=== PATIENT | female | born 2000 | race Caucasian/White ===

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

== ENCOUNTER 2022-05-05 14:22 | Emergency (ER) | payer OTHER ==
[~2022-05-05] VITALS: Ht 165.1 cm; Wt 89.8 kg
== END 2022-05-05 18:40 | disposition home or self-care (01) ==
LOC: ER 14:22 → EMR PED 14:49
DX: R00.2 Palpitations (principal); Z20.822 Contact with and (suspected) exposure to COVID-19

== ENCOUNTER 2022-08-02 02:25 | Emergency (ER) | payer OTHER ==
[~2022-08-02] VITALS: Ht 165.1 cm; Wt 92.5 kg
[2022-08-02] MEDS ORDERED: PROAIR HFA8.5 GM IH (06:12)
[2022-08-02] MEDS ORDERED: MEDROLPACK PO (06:12)
[2022-08-02] MEDS ORDERED: LEVALBUTER1.25 MG/0. IH (06:12)
[2022-08-02] MEDS ORDERED: MUCINEX DM ER1 EACH PO (06:13)
== END 2022-08-02 06:26 | disposition home or self-care (01) ==
LOC: EMR PED 02:25
DX: J45.901 Unspecified asthma with (acute) exacerbation (principal); J06.9 Acute upper respiratory infection, unspecified; A49.3 Mycoplasma infection, unspecified site; Z20.822 Contact with and (suspected) exposure to COVID-19

== ENCOUNTER 2024-07-23 14:42 | Emergency (ER) | payer OTHER ==
[~2024-07-23] VITALS: Ht 165.1 cm; Wt 97.5 kg
[~2024-07-23 14:42] MED LIST changes: +ACETAMINOPHEN650 M2; +LEVALBUTER1.25 MG/0. IH; +MEDROLPACK PO; +MUCINEX DM ER1 EACH PO; +PROAIR HFA8.5 GM IH
[2024-07-23] MEDS ORDERED: GUAIFENESIN/DEXTROMETHORPHAN 10ML BLIST.PACK PO STA (16:24)
[2024-07-23] MEDS ORDERED: CETIRIZINE HCL 5 MG/5 ML ML PO STA (16:25)
[2024-07-23] MEDS ORDERED: GUAIFENESIN/DEXTROMETHORPHAN 10ML BLIST.PACK PO ONE (16:32)
[2024-07-23] MEDS ORDERED: CETIRIZINE HCL 5MG/5ML BLIST.PACK PO ONE (16:32)
[2024-07-23 16:52] LABS: HEMOGLOBIN 12.5 g/dL (12.0-15.00); MEAN CELL VOLUME 84.4 fL (80.00-100.00); MEAN CORPUSCULAR HEMOGLOBIN 28.6 pg (27.00-32.0); MEAN CORPUSCULAR HGB CONC 33.9 g/dl (32.0-36.0); PLATELET COUNT 211 K/uL (150-450); RED BLOOD COUNT 4.38 M/uL (4.00-6.00); RED CELL DISTRIBUTION WIDTH 13.3 % (11.5-14.5)
[2024-07-23 17:15] LABS: CALCIUM 9.1 mg/dL (8.5-10.1); CREATININE SERUM 0.71 mg/dL (0.55-1.02); GFR 103.91; POTASSIUM 3.95 mEq/L (3.5-5.1)
[2024-07-23] MEDS ORDERED: ZYRTEC10 MG PO (17:51)
[2024-07-23] MEDS ORDERED: SINGULAIR10 MG PO (17:51)
[2024-07-23] MEDS ORDERED: MUCINEX DM ER1 EACH PO (17:51)
[2024-07-23] MEDS ORDERED: LEVOFLOXACIN750 MG PO (17:51)
== END 2024-07-23 18:43 | disposition home or self-care (01) ==
LOC: ER 14:43
PROVIDERS: General Practice
DX: J06.9 Acute upper respiratory infection, unspecified (principal); J00 Acute nasopharyngitis [common cold]; Z20.822 Contact with and (suspected) exposure to COVID-19